=== PATIENT | male | born 1975 | race Caucasian/White ===

== ENCOUNTER 2019-06-12 07:08 | Emergency (ER) | payer BC ==
[2019-06-12 07:30] VITALS: BP 122/77
--- NOTE | 2019-06-12 07:57 | UC ---
Hand/Wrist HPI - HPI Summary HPI Summary: 43-year-old male comes in with a chief complaint of injury to the distal right middle finger. Last evening it was crushed while handling wound. No skin break. Patient is able to move all the joints of the finger. No decreased sensation. Pain is worse with any kind of palpation. Not moving it decreases the pain. - History Of Current Complaint Chief Complaint: UCUpperExtremity Stated Complaint: RIGHT MIDDLE FINGER CONCERN Time Seen by Provider: 06/12/19 07:31 Pain Intensity: 7 - Allergies/Home Medications Allergies/Adverse Reactions: Allergies Allergy/AdvReac Type Severity Reaction Status Date / Time guaifenesin [From Mucinex] Allergy Hives Verified 06/12/19 07:30 Home Medications: Home Medications NK [No Home Medications Reported] 06/12/19 [History Confirmed 06/12/19] PMH/Surg Hx/FS Hx/Imm Hx Previously Healthy: Yes - Surgical History Surgical History: Yes Surgery Procedure, Year, and Place: [facility], - Family History Known Family History: Positive: Non-Contributory - Social History Alcohol Use: Occasionally Substance Use Type: Marijuana Smoking Status (MU): Heavy Every Day Tobacco Smoker Review of Systems All Other Systems Reviewed And Are Negative: Yes Constitutional: Positive: Negative Skin: Positive: Bruising - DISTAL RT MIDDLE FINGER Eyes: Positive: Negative ENT: Positive: Negative Respiratory: Positive: Negative Cardiovascular: Positive: Negative Gastrointestinal: Positive: Negative Motor: Positive: Other - SEE HPI Neurovascular: Positive: Negative Musculoskeletal: Positive: Other: - SEE HPI Neurological: Positive: Negative Psychological: Positive: Negative Is Patient Immunocompromised?: No Physical Exam Triage Information Reviewed: Yes Appearance: Well-Appearing, Well-Nourished, Pain Distress - WITH ROM AND PALPATION OF RT MIDDLE FINGER Vital Signs: Initial Vital Signs Temp 97.8 F 06/12/19 07:24 Pulse 57 06/12/19 07:24 Resp 16 06/12/19 07:24 BP 122/77 06/12/19 07:24 Pulse Ox 99 06/12/19 07:24 Vital Signs Reviewed: Yes Eye Exam: Normal Eyes: Positive: Conjunctiva Clear Neck: Positive: Supple Respiratory: Positive: No respiratory distress Musculoskeletal: Positive: Other: - Right middle finger is swollen the distal aspect. There is no skin break. Normal sensation. Patient keeps the DIP straight here in clinic however he reports he is able to move the DIP if needed the rest of the finger and hand has full range of motion. Neurological: Positive: Alert Psychological: Positive: Age Appropriate Behavior Skin: Positive: Other - Ecchymosis and swelling distal right middle finger Hand/Wrist Course/Dx - Course Course Of Treatment: Patient Name: LIGIA COREA Medical Record#: [id number] Ordering Physician: Maxim Oakes MD Acct.#: [id number] : 1975 Age: 43 Sex: M Location: [facility] Exam Date: 06/12/19730 ADM Status: [facility] Order Information: FINGER RIGHT MIDDLE Accession Number: [id number] CPT: 65214 Indication: Right middle finger injury. 3 views of the right middle finger demonstrates comminuted fracture of the distal phalanx of the third digit. No other fracture is identified. IMPRESSION: Comminuted fracture distal tuft of the distal phalanx of the third digit. <Electronically signed by Allegra Pandya MD in OV> 06/12/19 0840 I discussed the x-rays with the patient. Patient was splinted by nursing and patient neurovascular intact after splinting. Plan is ice anti-inflammatories immobilization and follow-up with orthopedics. - Differential Dx/Diagnosis Provider Diagnosis: Closed fracture of distal phalanx of right middle finger Discharge - Sign-Out/Discharge Documenting (check all that apply): Patient Departure All imaging exams completed and their final reports reviewed: Yes - Discharge Plan Condition: Stable Disposition: HOME Patient Education Materials: Finger Fracture (ED) Forms: *Work Release Referrals: Nathalie Nogueira MD [Medical Doctor] - Additional Instructions: FOLLOW UP WITH DR NOGUEIRA, ORTHOPEDICS. GET REEVALUATED SOONER IF WORSE OR ANY QUESTIONS OR CONCERNS. - Billing Disposition and Condition Condition: STABLE Disposition: Home
== END 2019-06-12 08:07 | disposition home or self-care (01) ==
LOC: UCCORT 07:08
DX: S62.632A Displaced fracture of distal phalanx of right middle finger, initial encounter for closed fracture (principal); W23.0XXA Caught, crushed, jammed, or pinched between moving objects, initial encounter; Y93.89 Activity, other specified; Y92.9 Unspecified place or not applicable; F17.200 Nicotine dependence, unspecified, uncomplicated
CPT/HCPCS: 73140; 99202; G0463